=== PATIENT | female | born 1945 | race Two or more races ===

== ENCOUNTER 2021-08-24 08:15 | Inpatient (IN) | payer OTHER ==
[~2021-08-24] VITALS: Ht 167.6 cm; Wt 90.7 kg
[2021-08-25] MEDS ORDERED: FUROSEMIDE40 MG (08:54)
[2021-08-25] MEDS ORDERED: FAMOTIDINE20 MG (08:54)
[2021-08-25] MEDS ORDERED: IRBESARTAN300 MG (08:55)
[2021-08-25] MEDS ORDERED: METOPROLOL SUCC50 MG (08:55)
[2021-08-25] MEDS ORDERED: SERTRALINE HCL50 MG (08:55)
[2021-08-25] MEDS ORDERED: ALPRAZOLAM2 MG (08:55)
[2021-08-25] MEDS ORDERED: INDAPAMIDE2.5 MG (08:55)
[2021-08-25] MEDS ORDERED: HYDROCHLOROTHIA25 MG (08:55)
[2021-08-25] MEDS ORDERED: SYNTHROID150 MCG (08:55)
[2021-08-25] MEDS ORDERED: BISOPROLOL FUMAR5 MG (08:55)
[2021-08-25] MEDS ORDERED: ELIQUIS5 MG (08:55)
[2021-08-27] MEDS ORDERED: ULTRACET PO (14:37)
[2021-08-27] MEDS ORDERED: RECTICARE30 GM TOP (14:38)
[2021-08-27] MEDS ORDERED: ELIQUIS2.5 MG PO (15:27)
[2021-08-27] MEDS ORDERED: INTEGRA F CAPS1 EACH PO (15:27)
[2021-08-27] MEDS ORDERED: ABANEU-SL TABL1 EACH SL (15:27)
== END 2021-08-29 14:28 | disposition home or self-care (01) | DRG 348 ==
LOC: ADM 08:15 → EDSTATUS 08:15 → SURG 17:08
PROVIDERS: Surgery; ADMIT Internal Medicine Geriatric Medicine; ATTEND Internal Medicine Geriatric Medicine
PROC: 4A12X4Z Monitoring of Cardiac Electrical Activity, External Approach (ICD-10-PCS; 2021-08-24)
PROC: 30233N1 Transfusion of Nonautologous Red Blood Cells into Peripheral Vein, Percutaneous Approach (ICD-10-PCS; 2021-08-25)
PROC: 06BY0ZC Excision of Hemorrhoidal Plexus, Open Approach (ICD-10-PCS; principal; 2021-08-26 07:00)
DX: K64.3 Fourth degree hemorrhoids (principal); I48.20 Chronic atrial fibrillation, unspecified; N18.4 Chronic kidney disease, stage 4 (severe); D64.9 Anemia, unspecified; Z20.822 Contact with and (suspected) exposure to COVID-19; I12.9 Hypertensive chronic kidney disease with stage 1 through stage 4 chronic kidney disease, or unspecified chronic kidney disease; Z95.0 Presence of cardiac pacemaker; I11.9 Hypertensive heart disease without heart failure; E03.8 Other specified hypothyroidism